=== PATIENT | female | born 1955 | race Caucasian/White ===

== ENCOUNTER 2018-04-23 13:41 | Outpatient (CLI) | payer MEDICARE ==
--- NOTE | 2018-04-23 14:35 | RAD ---
THREE VIEWS RIGHT SHOULDER: INDICATION: Chronic pain. IMPRESSION: No acute fracture or subluxation is evident. 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 The patient's right lung is clear. POS: CET
== END 2018-04-23 13:42 | disposition home or self-care (01) ==
LOC: MADRAD 13:41
PROVIDERS: ATTEND Orthopaedic Surgery
DX: M25.511 Pain in right shoulder (principal); M19.011 Primary osteoarthritis, right shoulder

== ENCOUNTER 2021-07-16 12:19 | Emergency (ER) | payer MEDICARE | END 2021-07-16 14:02 | disposition home or self-care (01) | LOC: MADERS 12:19 | DX: M25.532 Pain in left wrist (principal); I25.2 Old myocardial infarction; F17.210 Nicotine dependence, cigarettes, uncomplicated; Z79.02 Long term (current) use of antithrombotics/antiplatelets ==

== ENCOUNTER 2021-07-17 10:25 | Outpatient (CLI) | payer MEDICARE ==
[2021-07-17] MEDS ORDERED: Iopamidol 370 76% 100 ML VIAL ONE (12:52)
== END 2021-07-17 10:26 | disposition home or self-care (01) ==
LOC: MADCT 10:25
PROVIDERS: ATTEND Internal Medicine
DX: R05.3 Chronic cough (principal); J43.9 Emphysema, unspecified; J98.4 Other disorders of lung; I71.4 Abdominal aortic aneurysm, without rupture; N26.1 Atrophy of kidney (terminal)
CPT/HCPCS: 36415; 71260; 74160; 82565; Q9967